=== PATIENT | female | born 2005 | race Caucasian/White ===

== ENCOUNTER 2025-05-17 20:26 | Emergency (ER) | payer BC, OTHER ==
--- OUTSIDE RECORDS SUMMARY | 2025-05-17 20:29 | XMS REPORT | Continuity of Care Document ---
Author Name Unknown Address [address] [place] [address] [address] [place] [address] Organization [facility] [place] Address [address] [facility] [address] [place] [address] Care Team Providers Care Vocational Coordinator Name Role Phone NERI FRANK Attending Clinician Unavailable [id number] Attending Clinician Unavailable Payers Payer Name Policy Type Policy Number Effective Date Expirati on Date Source [employer] 2 [id number] 2024 00:00:00 Social History Social Habit Start Date Stop Date Quantity Comments Source Sexual orientation Israel Yin - External Tobacco use and exposure 2024-03-23 00:00:00 2024-03-23 00:00:00 Smokeless tobacco non-user Stefan Yin - External Alcoholic beverage intake 2024-03-23 00:00:00 2024-03-23 00:00:00 Lifetime non-drinker (finding) Stefan Yin - External History of Social function 2024-03-23 00:00:00 2024-03-23 00:00:00 Stefan Yin - External Sex assigned at 2005 00:00:00 2005 00:00:00 Stefan Yin - External Smoking Status Start Date Stop Date Source Never smoked tobacco Stefan Yin - External Medications Ordered Medication Name Filled Medication Name Start Date Stop Date Current Medication? Ordering Clinician Indication Dosage Frequency Signature (SIG) Comments Components Source Lisdexamfet amine Dimesylate (Vyvanse) 50 MG oral Capsule 03-23 00:00: 00 Yes [id number] 50mg Take 1 capsule (50 mg total) by mouth every morning. Stefan Yin - Externa l Immunizations Ordered Immunization Name Filled Immunization Name Date Status Comments Source Tdap- (Boostrix, Adacel) Unknown Completed Stefan raman - External MENINGOCOCCAL VACCINE-CONJUGATE(MENQ UADFI) Unknown Completed Stefan Seraman - External Vital Signs Vital Name Observation Time Observation Value Comments Ranjith sibley Systolic blood pressure 2024-03-23 15:34:00 106 mm[Hg] Stefan Diazo ld - External Diastolic blood pressure 2024-03-23 15:34:00 72 mm[Hg] Stefan Emilyo ld - External Heart rate 2024-03-23 15:34:00 73 /min Kel y Seybold - External Body temperature 2024-03-23 15:34:00 36.78 Jenna Stefan Crockerybold - External Respiratory rate 2024-03-23 15:34:00 18 /min Stefan Crockerybold - External Body height 2024-03-23 15:34:00 152.4 cm Lauryn ey Seybold - External Body weight 2024-03-23 15:34:00 68.04 kg Lauryn arango Seybold - External BMI 2024-03-23 15:34:00 29.29 kg/m2 Lauryn arango Seybold - External Encounters Start Date/Time End Date/Time Encounter Type Admission Type Attending [facility] Care Department Encounter ID Source 2024-12-29 08:10:00 2024-12-29 08:10:00 Outpatient NERI FRANK [id number] Stefan raman 2024-03-28 00:00:00 2024-03-28 00:00:00 Outpatient NERI FRANK [id number] Stefan Yin 2024-03-23 11:40:00 2024-03-23 11:40:00 Outpatient [id number] [id number] Stefan raman 2024-03-23 10:50:00 2024-03-23 10:50:00 Outpatient NERI FRANK [id number] Stefan Yin Notes Date/Time Note Provider Source 2024-03-23 10:35:37 Chief Complaint Patient presents with Physical Patient here for annual check up. ABIOLA Murillo II [facility]
[2025-05-17 21:18] LABS: METHAMPHETAM NEGATIVE (NEGATIVE); THC Cannibis NEGATIVE (NEGATIVE)
[2025-05-17] MEDS ORDERED: NA CHLORIDE 0.9% 1,000 ML ONE (21:23)
[2025-05-17 22:17] LABS: Absolute Lymphocytes (CBC) 1.6 K/uL (0.7-4.9); Hematocrit 36.8 % (36.0-45.0); Hemoglobin 13.0 g/dL (12.0-15.0); MCH 29.5 pg (27.0-35.0); MCHC 35.3 g/dL (32.0-36.0); MCV 83.6 fL (80-100); MPV 8.7 fL (7.6-11.3); Nucleated RBC Absolute Count 0.0 (0-0); Nucleated Red Blood Cells % 0.0 % (0-0); RBC Red Blood Cell Count 4.40 M/uL (3.86-4.86); White Blood Count 5.30 thou/uL (4.3-10.9)
[2025-05-17 22:31] LABS: ALT/SGPT 18 U/L (13-56); AST/SGOT 13 U/L (15-37); Albumin 3.9 g/dL (3.4-5.0); Albumin/Globulin Ratio 1.3 (1.1-1.8); Alkaline Phosphatase 86 U/L (45-117); Anion Gap 8.5 mEq/L (5.0-15.0); BUN Blood Urea Nitrogen 8 mg/dL (7-18); Bilirubin Indirect, Calculated 0.5 mg/dL (0.2-0.8); Globulin 3.0 g/dL (2.3-3.5); Glucose Level 91 mg/dL (74-106); Potassium 3.5 mEq/L (3.5-5.1)
[2025-05-17 22:36] LABS: PT Prothrombin Time 13.3 SECONDS (10-13.0); PTT, Activated Partial Thromb 30.4 SECONDS (27.2-37.4); Protime INR 1.18
--- NOTE | 2025-05-17 22:46 | RAD REPORT ---
EXAMINATION: Head C Spine Mpr Wo Con CLINICAL INDICATION: Female, 19 years old. pain TECHNIQUE: Axial CT images from the skull base to the vertex without intravenous contrast. Axial CT i mages through the cervical spine were obtained without intravenous contrast. Sagittal and coronal reformatted images were created from the data set. Coronal and sagittal reformatted images were creat ed from the data set. One or more of the following dose reduction techniques were used: Automated exposure control, adjustment of the mA and/or kV according to patient size, and/or iterative reconstr uction. Unless otherwise specified, incidental findings do not require dedicated imaging follow-up. [id number]. COMPARISON: No prior exams FINDINGS: Head: INTRACRANIAL: No acute intracranial hemorrhage. No acute large vascular territory infarct. No hydroce phalus. No mass effect or midline shift. No significant white matter disease. VASCULATURE: No visualized abnormalities in the arteries or dural venous sinuses. SCALP/SKULL: No calvarial fracture identified. No acute soft tissue abnormality. SINUSES: The visualized paranasal sinuses are mostly clear. No significant mastoid fluid. Cervical spine: ALIGNMENT: The cervical spine has normal alignment without scoliosis or spondylolisthesis. BONE: Vertebral body heights are maintained. No aggressive osseous lesions. DEGENERATIVE: No significant focal degenerative changes. SOFT TISSUE: No significant abnormalities in the soft tissue of the neck. The visualized lung apices are clear. IMPRESSION: No acute intracranial abnormality. No acute fracture or traumatic malalignment of the cervical spine.
[2025-05-18 00:05] LABS: Sqamous Epithelial <5 /HPF (None Seen); Urine Culture Reflex Order NOT NEEDED; Urine Microscopic Reflex YN ORDER UMIC
--- NOTE | 2025-05-18 00:29 | ER ---
Nurse's Notes [facility] Name: Martha Martell Age: 19 yrs Sex: Female : 2005 Arrival Date: 05/17/2025 Time: 20:26 Bed 7 Private MD: Diagnosis: Other seizures Presentation: 05/17 20:31 Chief complaint: EMS states: Family found patient in bed breathing but unresponsive. tb4 Blood coming from mouth from a bite on patients tongue. Coronavirus screen: At this time, the client does not indicate any symptoms associated with coronavirus-19. Ebola Screen: No symptoms or risks identified at this time. Initial Sepsis Screen: Does the patient meet any 2 criteria? No. Patient's initial sepsis screen is negative. Does the patient have a suspected source of infection? No. Patient's initial sepsis screen is negative. Risk Assessment: Do you want to hurt yourself or someone else?. Onset of symptoms was May 17, 2025. Care prior to arrival: Medication(s) given: Glucagon, Normal saline infusion, 400 ml. 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 - Infectious Disease History:: Denies. - Social history:: Smoking status: Patient denies any tobacco usage or history of. Patient/guardian denies using alcohol, street drugs, IV drugs, tobacco products. Screenin:24 [facility] ED Fall Risk Assessment (Adult) History of falling in the last 3 months, tb4 including since admission No falls in past 3 months (0 pts) Confusion or Disorientation No (0 pts) Intoxicated or Sedated No (0 pts) Impaired Gait No (0 pts) Mobility Assist Device Used No (0 pt) Altered Elimination No (0 pt) Score/Fall Risk Level 0 - 2 = Low Risk Maintained a safe environment. Abuse screen: Denies threats or abuse. Denies injuries from another. Nutritional screening: No deficits noted. Tuberculosis screening: No symptoms or risk factors identified. Assessment: 21:24 General: Appears in no apparent distress. Behavior is cooperative. Pain: Denies pain. tb4 Neuro: Level of Consciousness is awake, alert, obeys commands, Oriented to person, place, time, Moves all extremities. Full function Gait is steady, Speech is slurred, Facial symmetry appears normal. Respiratory: Airway is patent Respiratory effort is even, unlabored, Respiratory pattern is regular, symmetrical. GI: Abdomen is flat, Bowel sounds present X 4 quads. GI: No signs and/or symptoms were reported involving the gastrointestinal system. : No signs and/or symptoms were reported regarding the genitourinary system. : No signs and/or symptoms were reported regarding the genitourinary system. EENT: No signs and/or symptoms were reported regarding the EENT system. Derm: No signs and/or symptoms reported regarding the dermatologic system. Skin is intact, is healthy with good turgor, Skin is dry, Skin is normal, Skin temperature is warm. Musculoskeletal: No signs and/or symptoms reported regarding the musculoskeletal system. Circulation, motion, and sensation intact. Range of motion: intact in all extremities. Psych: 21:40 [place] Suicide Severity Screening: In the past month, have you wished you were tb4 or wished you could go to sleep and not wake up? Patient responds "No." "In the past month, have you actually had any thoughts of killing yourself?" Patient responds "no." "In your lifetime, have you ever done anything, started to do anything, or prepared to do anything to end your life?" Patient responds "no.". Subjective: Patient's mood is Delusions are denied, Hallucinations are denied Having thoughts of Denies sucidial. Objective: Patient is cooperative, Speech is normal, Affect is appropriate. Interventions: None. Patient has family at bedside. Safety Checks: Pt denies substance abuse. Commitment:. Vital Signs: 20:31 BP 130 / 68; Pulse 100; Pulse Ox 98% on R/A; Pain 0/10; tb4 21:24 BP 122 / 79; Pulse 85; Resp 19; Pulse Ox 100% ; Weight 65.77 kg; Height 5 ft. 10 in. ; tb4 Pain 0/10; 22:30 BP 126 / 91; Pulse 73; Resp 18; Pulse Ox 99% on R/A; Pain 0/10; tb4 23:30 BP 120 / 72; Pulse 81; Resp 17; Pulse Ox 99% on R/A; Pain 0/10; tb4 09/19 00:44 BP 121 / 79; Pulse 80; Resp 19; Pulse Ox 100% on R/A; Pain 0/10; tb4 05/17 21:24 Body Mass Index 20.81 (65.77 kg, 177.8 cm) tb4 05/17 20:31 Pain Scale: Adult tb4 21:24 Pain Scale: Adult tb4 22:30 Pain Scale: Adult tb4 23:30 Pain Scale: Adult tb4 05/18 00:44 Pain Scale: Adult tb4 ED Course: 05/17 20:29 Patient arrived in ED. vc1 20:30 Gary العلي PA-C is PHCP. cp 20:30 Gary Richard MD is Attending Physician. cp 20:59 Triage completed. tb4 20:59 Arm band placed on right wrist. tb4 21:14 Gema Garibay is Primary Nurse. cp4 21:23 EKG done, by certified medical technician. reviewed by Gary العلي PA-C. ts3 21:24 Patient has correct armband on for positive identification. Bed in low position. Call tb4 light in reach. Adult w/ patient. Client placed on continuous cardiac and pulse oximetry monitoring. NIBP monitoring applied. dispensing operator on. Door closed. 21:24 No provider procedures requiring assistance completed. Maintain EMS IV. Dressing tb4 intact. Good blood return noted. Site clean \\T\\ dry. Gauge \\T\\ site: 20 L AC. Flushed with 10 mL NS IV is patent, Changed dressing on left Flushed left. 22:01 Initial lab(s) drawn, by flower shop laborer/designer, sent to lab. ts3 22:01 Urine collected: clean catch specimen, sent to lab. ts3 22:31 Head C Spine Mpr Wo Con In Process Unspecified. EDMS 05/18 00:28 Ty Abbasi MD is Referral Physician. cp 00:45 Provided Education on: Follow up with primary care. tb4 00:47 IV discontinued, intact, bleeding controlled, No redness/swelling at site. Pressure tb4 dressing applied. Administered Medications: 05/17 21:37 Drug: NS 0.9% IV 1000 ml IV at 1 bolus Per protocol; to be given as a bolus over 60 tb4 minutes Route: IV; Rate: 1 bolus; Site: left antecubital; 05/18 00:42 Follow up: Response: No adverse reaction; IV Status: Completed infusion tb4 Medication: 05/17 21:24 VIS not applicable for this client. tb4 Outcome: 05/18 00:29 Discharge ordered by . lanette 00:46 Discharged to home ambulatory, tb4 00:46 Condition: stable 00:46 Discharge instructions given to patient, Instructed on discharge instructions, follow up and referral plans. Demonstrated understanding of instructions, follow-up care, 00:47 Patient left the ED. tb4 Signatures: Dispatcher [employer] EDMS Gary العلي PA-C PA-C cp Calcote, Vanessa RN RN vc1 Gema Garibay cp4 Devi Melo RN RN tb4 Sheila Oshea ts3
--- NOTE | 2025-05-18 00:29 | EDPHYS ---
Physician Documentation [facility] Name: Martha Martell Age: 19 yrs Sex: Female : 2005 Arrival Date: 05/17/2025 Time: 20:26 Bed 7 Private MD: ED Physician Gary Richard HPI: 05/18 21:15 This 19 yrs old Female presents to ER via EMS with complaints of Altered Mental Status. cp 21:15 Patient is a 19-year-old female with no significant past medical history who was cp brought to the emergency department after her parents reportedly found her in her room unconscious after having to break into a room. Her parents reported they were called by her boyfriend after he reportedly observed her go unconscious while they were face timing. Parents reports since this incident that occurred about 8:00 this evening patient has like quite similar self with having difficulty recalling things and seeming confused. They also note that she did bite the side of her tongue. Upon questioning patient is otherwise healthy with no history of seizures and no significant family history of cardiac disease. 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 - Infectious Disease History:: Denies. - Social history:: Smoking status: Patient denies any tobacco usage or history of. Patient/guardian denies using alcohol, street drugs, IV drugs, tobacco products. ROS: 21:20 Constitutional: Negative for body aches, chills, fever, poor PO intake, cp 21:20 Eyes: Negative for injury, pain, redness, and discharge, cp 21:20 ENT: Negative for drainage from ear(s), ear pain, sore throat, difficulty swallowing, difficulty handling secretions, 21:20 Cardiovascular: Negative for chest pain, palpitations, 21:20 Respiratory: Negative for cough, shortness of breath, wheezing, 21:20 Abdomen/GI: Negative for abdominal pain, vomiting, diarrhea, constipation, 21:20 Neuro: Positive for loss of consciousness, Negative for headache, weakness, 21:20 All other systems are negative, Exam: 21:25 ECG was reviewed by the Attending Physician. cp 21:27 Constitutional: The patient appears in no acute distress, alert, awake, cp non-diaphoretic, non-toxic, well developed, well nourished, 21:27 Head/Face: Normocephalic, atraumatic. cp 21:27 Eyes: Periorbital structures: appear normal, Pupils: equal, round, and reactive to light and accomodation, Extraocular movements: intact throughout, Conjunctiva: normal, no exudate, no injection, Sclera: no appreciated abnormality, Lids and lashes: appear normal, bilaterally, 21:27 ENT: External ear(s): Nose: is normal, Mouth: Lips: moist, Oral mucosa: moist, Posterior pharynx: Airway: no evidence of obstruction, patent, 21:27 Neck: ROM/movement: is normal, is supple, without pain, no range of motions limitations, 21:27 Chest/axilla: Inspection: normal, Palpation: is normal, no crepitus, no tenderness, 21:27 Cardiovascular: Rate: normal, Rhythm: regular, 21:27 Respiratory: the patient does not display signs of respiratory distress, Respirations: normal, no use of accessory muscles, no retractions, labored breathing, is not present, Breath sounds: are clear throughout, no decreased breath sounds, no stridor, no wheezing, 21:27 Abdomen/GI: Inspection: abdomen appears normal, Palpation: abdomen is soft and non-tender, in all quadrants, 21:27 Neuro: Orientation: to person, place \T\ time. Mentation: able to follow commands, Cerebellar function: Romberg testing is negative, normal finger to nose testing, Motor: moves all fours, no focal deficits, Sensation: no obvious gross deficits, Vital Signs: 20:31 BP 130 / 68; Pulse 100; Pulse Ox 98% on R/A; Pain 0/10; tb4 21:24 BP 122 / 79; Pulse 85; Resp 19; Pulse Ox 100% ; Weight 65.77 kg; Height 5 ft. 10 in. ; tb4 Pain 0/10; 22:30 BP 126 / 91; Pulse 73; Resp 18; Pulse Ox 99% on R/A; Pain 0/10; tb4 23:30 BP 120 / 72; Pulse 81; Resp 17; Pulse Ox 99% on R/A; Pain 0/10; tb4 05/18 00:44 BP 121 / 79; Pulse 80; Resp 19; Pulse Ox 100% on R/A; Pain 0/10; tb4 09/18 21:24 Body Mass Index 20.81 (65.77 kg, 177.8 cm) tb4 05/17 20:31 Pain Scale: Adult tb4 21:24 Pain Scale: Adult tb4 22:30 Pain Scale: Adult tb4 23:30 Pain Scale: Adult tb4 05/18 00:44 Pain Scale: Adult tb4 MDM: 05/17 20:30 Medical Screening Exam initiated 05/18 00:28 Data reviewed: vital signs, nurses notes, lab test result(s), EKG, radiologic studies, cp CT scan, plain films, and as a result, I will discharge patient. 00:28 Differential Diagnosis: CVA, electrolyte abnormality, alcohol intoxication, meningitis, cp seizure, TIA, UTI, volume depletion. I considered the following discharge prescriptions or medication management in the emergency department Medications were administered in the Emergency Department. See MAR. Counseling: I had a detailed discussion with the patient and/or guardian regarding the historical points, exam findings, and any diagnostic results supporting the discharge/admit diagnosis, lab results, radiology results, the need for outpatient follow up, for definitive care, a neurologist, to return to the emergency department if symptoms worsen or persist or if there are any questions or concerns that arise at home. Response to treatment: the patient's symptoms have markedly improved after treatment, and as a result, I will discharge patient. 00:28 ED course: Vital signs stable. No seizure type activity observed while monitoring cp patient in the ED. Reevaluation patient is back to baseline, conversation with her mother in a playful manner. We discussed these concerns that the sound as if patient most likely had a seizure and that does not necessarily mean that patient may have developed a seizure disorder. Recommendation is neurology follow-up. No operating a vehicle, performing work on roof or ladders until neurology clearance and/or at least 3 months. 05/17 20:43 Order name: Urine Drug Screen; Complete Time: 23:51 kmf 05/17 23:52 Interpretation: Normal except. cp 05/17 22:02 Order name: Basic Metabolic Panel; Complete Time: 23:51 EDMS 05/17 23:51 Interpretation: Normal except: CL 109. cp 05/17 22:02 Order name: Liver (Hepatic) Function; Complete Time: 23:51 EDMS 05/17 23:51 Interpretation: Normal except: AST 13. cp 05/17 22:02 Order name: Acetaminophen Level; Complete Time: 23:51 EDMS 05/17 23:51 Interpretation: Reviewed. 05/17 22:02 Order name: Alcohol Serum/Plasma; Complete Time: 23:51 EDMS 0918 23:53 Interpretation: Reviewed. 05/17 22:02 Order name: Salicylates Level; Complete Time: 23:51 EDMS 18 23:53 Interpretation: Reviewed. 05/17 22:02 Order name: CBC with Automated Diff; Complete Time: 23:51 EDMS 0918 23:54 Interpretation: Reviewed. 05/17 22:02 Order name: Protime (+INR); Complete Time: 23:51 EDMS 18 23:52 Interpretation: Within normal limits: INR <p>1.18</p>. 05/17 22:02 Order name: PTT, Activated Partial Thromb; Complete Time: 23:51 EDMS 18 23:54 Interpretation: PTT 30.4. 05/18 00:01 Order name: UA Rfx Vance Cult if indicated; Complete Time: 00:17 EDMS 05/18 00:18 Interpretation: Reviewed. 05/18 00:01 Order name: Test, Urine; Complete Time: 00:17 EDMS 18 22:08 Order name: Head C Spine Mpr Wo Con; Complete Time: 23:51 EDMS 18 23:53 Interpretation: Report reviewed. 05/17 21:06 Order name: EKG; Complete Time: 21:06 05/17 21:06 Order name: EKG - Nurse/Tech; Complete Time: 21:22 05/17 21:06 Order name: IV Saline Lock; Complete Time: 21:23 05/17 21:06 Order name: Labs collected and sent; Complete Time: 21:23 05/17 21:06 Order name: Suicide Screening ([place]); Complete Time: 00:43 05/17 21:06 Order name: Seizure Precautions; Complete Time: 21:23 cp EC/18 21:25 Rate is 89 beats/min. Rhythm is regular. NE interval is normal. QRS interval is normal. cp QT interval is normal. T waves are Inverted in lead aVR. Interpreted by me. Reviewed by me. Administered Medications: 21:37 Drug: NS 0.9% IV 1000 ml IV at 1 bolus Per protocol; to be given as a bolus over 60 tb4 minutes Route: IV; Rate: 1 bolus; Site: left antecubital; 05/18 00:42 Follow up: Response: No adverse reaction; IV Status: Completed infusion tb4 Disposition Summary: 05/18/25 00:29 Discharge Ordered Notes: Location: Home cp Problem: new cp Symptoms: have improved cp Condition: Stable cp Diagnosis - Other seizures cp Followup: cp - With: Ty Abbasi MD - When: 2 - 3 days - Reason: Recheck today's complaints Discharge Instructions: - Discharge Summary Sheet cp - Electroencephalogram, Adult cp - Seizure, Adult cp Forms: - Medication Reconciliation Form cp - Antibiotic Education cp - Prescription Opioid Use cp - Patient Portal Instructions cp - Leadership Thank You Letter cp Addendum: 05/21/2025 11:35 Co-signature as Attending Physician, Gary Richard MD I agree with the assessment and c leroy plan of care. Signatures: Dispatcher [employer] Gary Mcleod MD MD cha Page, Corey, PA-C PA-C Devi Romero, RN RN tb4 Corrections: (The following items were deleted from the chart) 05/17 20:44 20:44 URINE DRUG SCREEN+.LAB.BRZ ordered. ANGELIA GALAN
[2025-05-18 01:13] VITALS: BP 121/79; O2SAT 100
== END 2025-05-18 00:47 | disposition home or self-care (01) ==
LOC: ER 20:26
DX: G40.89 Other seizures (principal)
CPT/HCPCS: 96361; 93005; 85025; 81001; 80048; 36415; 81025; 85610; 80076; 85730; 80307; 70450; 72125; 96360; 99285; 80143; 80179; 82077; J7030